=== PATIENT | female | born 1950 | race Caucasian/White ===

== ENCOUNTER 2017-11-19 18:48 | Emergency (ER) | payer MEDICARE, BC | END 2017-11-19 20:33 | disposition home or self-care (01) | LOC: M ED 18:48 | DX: S01.01XA Laceration without foreign body of scalp, initial encounter (principal); W22.8XXA Striking against or struck by other objects, initial encounter; Y92.89 Other specified places as the place of occurrence of the external cause; Y93.75 Activity, martial arts; Z88.0 Allergy status to penicillin | CPT/HCPCS: 12001 ==